=== PATIENT | female | born 1985 ===

== ENCOUNTER 2017-12-02 08:58 | Inpatient (IN) | payer MEDICAID ==
[2017-12-02 10:20] VITALS: BMI 34.4
[2017-12-02] MEDS ORDERED: Lactated Ringer's 1,000 ML IV ONE (13:04)
[2017-12-02] MEDS ORDERED: Oxytocin 30 UNIT 30 UNITS/500 ML BAG IV ONE (13:06)
[2017-12-02] MEDS ORDERED: OXYTOCIN/0.9 % NS 20 UNIT/1,000 ML BAG IV ONE (13:06)
[2017-12-02] MEDS ORDERED: Lactated Ringer's 1,000 ML IV SCH ×2 (13:15→18:34)
[2017-12-02] MEDS ORDERED: SODIUM CHLORIDE IVPB ONE (13:22)
[2017-12-02] MEDS ORDERED: PENICILLIN SODIUM IVPB ONE (13:22)
--- NOTE | 2017-12-02 13:25 | OBADHP ---
Datetime: 12/02/2017 13:02 Admit Comment, IP Provider: 32 y/o female at [id number] c/o painful contractions that began at 1AM. She states that she also has vaginal spotting. She denies VFL. She endorses movements. [facility]: [facility] Pmhx: denies SurgHx: denies FamHx: denies SocialHx: denies tobacco, etoh, recreational drug use Allergies: NKDA OBhx: NSVDx2, Abortions x2 HomeRx: vitamins Gen: not in acute distress Heart: RRR, S1S2 present Lungs: clear to auscultation bilaterally Abd: soft, nontender, normal bowel sounds SVE: (Chaperoned by Dr. Guerrero) 2 cm dilated, 80% effacement, posterior on admission Extremities: no pedal edema or calf tenderness Assessment and Plan: 32 y/o female [id number] intrauterine GBS positive Patient is not in active labor; occasional contractions, 2 cm dilated at 10:00AM Patient advised to start PO fluids Will reevaluate in 2 hours to assess cervical change 1:00PM patient is 6 cm dilated. Will admit to L_D. CBC/ type and screen ordered Can have epidural, anesthesiology consulted Case discussed w/ attending physician, Dr. Guerrero Applied Anthropologist ID#:[id number] ARIAS [facility] Hospitalist Addendum: 32 yo at 38+6 wks w/ painful cyxns since 1 am, in labor. VE rocha ged from 1cm at 10 am to 6-7 cm dilated at 1pm. FHT reactive. GBS positive. Will start Penicillin for GBS prophylaxis. Pt admitted to L_D. (ES) Pelvic Type - PN: Adequate Extremities - PN: Normal Abdomen - PN: Normal Back - PN: Normal Breast - PN: Not Done Lungs - PN: Normal Heart - PN: Normal Thyroid - PN: Normal Neurologic - PN: Normal HEENT - PN: Normal General - PN: Normal FHR - Baseline A Provider: 150 Membranes, Provider: Bulging Gestation - Est Wks by US: 38.6 IP Hx Assessment: The History has been Reviewed and is Current Vital Signs Provider: Reviewed; Within Normal Limits IP Chief Complaint: Uterine contractions; Maternal discomfort NICHD Variability Prov Fetus A: Moderate 6-25bpm NICHD Accel Fetus A IP Provider: [id number] FHR Category Provider Fetus A: Category I NICHD Decel Fetus A IP Provider: None Dilatation, Provider: 6 Effacement, Provider: 80 Station, Provider: -2 Genitourinary Exam: Not Done DTRs - PN: Not Done EGA AdmitDate IP: 38.6 IP Adm Impression: Term, intrauterine ; Active labor IP Admit Plan: Admit to unit Datetime: 12/02/2017 09:50 Contraction Comments Provider: occasional
[2017-12-02] MEDS ORDERED: Penicillin G 5 Million Unit Vial IVPB ONE (13:51)
[2017-12-02 14:02] LABS: BASO % 0.3 % (0.0-2.0); EOS # 0.1 K/uL (0.0-0.7); EOS % 0.4 % (0.0-4.0); HEMOGLOBIN 11.8 g/dL (12.0-16.0); LYMPH # 2.6 K/uL (1.0-4.3); MEAN CELL VOLUME 88.4 fl (81.0-99.0); MEAN CORPUSCULAR HEMOGLOBIN 29.3 pg (27.0-31.0); MEAN CORPUSCULAR HGB CONC 33.1 g/dL (33.0-37.0); MEAN PLATELET VOLUME 9.3 fl (7.2-11.7); MONO # 0.6 K/uL (0.0-0.8); NEUT # 11.3 K/uL (1.8-7.0); NEUT % 77.3 % (50.0-75.0); RBC 4.03 Mil/uL (3.80-5.20); RED CELL DISTRIBUTION WIDTH 14.3 % (11.5-14.5); WHITE BLOOD COUNT 14.6 K/uL (4.8-10.8)
[2017-12-02] MEDS ORDERED: Oxycodone/Acetaminophen 5/325 mg Tab PO PRN ×2 (16:20→18:34)
[2017-12-02] MEDS ORDERED: Benzocaine/Menthol SPRAY TOP PRN ×2 (16:20→18:34)
--- NOTE | 2017-12-02 16:54 | OBDS ---
MATERNAL INFORMATION Provider Comments: Pt progressed to complete and pushed to deliver a viable female at 1608. Nuchal x1 was reduced as baby delivered. Apgars 9 and 9. Wt 3690 gms, 8#2.2 Cord doubly clamped and her friend cut the cord. Placenta delivered spontaneously intact w/ a 3vc at 1612. 0.5 % [place] ne was infiltrated into the vagina and perineum. Second degree tear repaired w/ 2-0 rapide and 3-0v. Pt and baby tolerated the procedure well. EBL 150mL LABOR SUMMARY EDC: 12/10/2017 00:00 No. Babies in Womb: 1 LABOR INFORMATION Onset of Labor: 12/02/2017 01:00 Group B Beta Strep: Positive MEMBRANES Membranes Rupture Method: Spontaneous Amniotic Fluid Color: Clear Amniotic Fluid Amount: Moderate Amniotic Fluid Odor: Normal VAGINAL DELIVERY Episiotomy: None Laceration Extension: Second Degree Laceration Type: Vaginal Laceration Repair: Yes Initial Vag Sponge Count: 5 laps with ring, 10 sponges Final Vag Sponge Count: 5 laps with ring, 10 sponges Initial Vag Sharps Count: 2 sutures, 1 needle Final Vag Sharps Count: 2 sutures, 1 needle Sponge Count Correct: Yes Sharps Count Correct: Yes Count Comment: count correct acknowleged by Dr. Guerrero BABY A INFORMATION Delivery Date/Time: 12/02/2017 16:08 Method of Delivery: Vaginal Born in Route : No : N/A Forceps: N/A Vacuum Extraction: N/A Shoulder Dystocia : No SHOULDER DYSTOCIA BABY A Infant Delivery Date/Time: 12/02/2017 16:08 PRESENTATION/POSITION BABY A Presentation: Cephalic INFORMATION BABY A Gestational Age at Delivery: 38.6 Gestational Status: Term Outcome : Liveborn Condition : Stable Infant Sex: Female
[2017-12-03 06:48] LABS: BASO % 0.1 % (0.0-2.0); EOS # 0.2 K/uL (0.0-0.7); EOS % 1.1 % (0.0-4.0); HEMOGLOBIN 10.1 g/dL (12.0-16.0); LYMPH # 2.6 K/uL (1.0-4.3); LYMPH % 17.1 % (20.0-40.0); MEAN CELL VOLUME 87.9 fl (81.0-99.0); MEAN CORPUSCULAR HEMOGLOBIN 29.8 pg (27.0-31.0); MEAN PLATELET VOLUME 8.9 fl (7.2-11.7); MONO # 0.7 K/uL (0.0-0.8); MONO % 4.2 % (0.0-10.0); NEUT % 77.5 % (50.0-75.0); RBC 3.4 Mil/uL (3.80-5.20); RED CELL DISTRIBUTION WIDTH 13.9 % (11.5-14.5); WHITE BLOOD COUNT 15.5 K/uL (4.8-10.8)
[2017-12-03] MEDS: Multivitamin With Minerals Tab PO SCH (08:20)
[2017-12-03] MEDS ORDERED: Multivitamin With Minerals Tab PO SCH (09:00)
--- NOTE | 2017-12-03 23:05 | OBPPN ---
Datetime: 12/03/2017 08:38 PP Pain Prov: Within normal limits PP Nausea Prov: Denies PP Flatus Prov: Yes PP BM Prov: No PP Breasts Prov: Not Done PP Heart Prov: Normal PP Lungs Prov: Normal PP Abdomen/Uterus Prov: Normal PP Lochia Prov: Normal PP Vulva/Perineum Prov: Not Done PP CVA Tenderness Prov: Normal PP Extremities Prov: Normal PP C/S Incision Prov: Not Applicable PP Progress Prov: Normal PP Impression Prov: Normal progression PP Plan Prov: Continue present management PP Progress Note Prov: 32 yo now , 38.6 wks, s/p 12/02/17 being evaluated on PPD1. Pt hav e no acute overnight complains. Abdominal pain appropriately controlled with ibuprofen. Pt reports pa ssing flatus, but BM yetl. Lochia less than menses. She is formula feeding. PT denies fever, chills, diarrhea, nausea/vomiting, chest pain, dyspnea, and dizziness. O: VS: Stable, WNL GEN: NAD Cardio: RRR, S1S2, no murmurs Lungs: CTA B/L, no wheezing Abdomen: BS+, appropriated tendenrness, fundus at umbilicus, firm. Ext: No edema, calves non-tender Neuro/psych: AAOx3, no grossly focal deficits, preserved affect and mood. A/P: 32 yo now , 38.6 wks, s/p 12/02/17 being evaluated on PPD1 with normal progression. Pt remains afebrile, tolerating pain with medication. Tolerating diet. Continue with current management Encourage Encourage ambulating Continue Ibuprofen 600mg q6 for mild-moderate pain. [facility]ip[facility] I saw and examined this patinet. Agree with note MAMIEO Vital Signs Provider PP: Reviewed; Within Normal Limits
[2017-12-04] MEDS: Multivitamin With Minerals Tab PO SCH (08:23)
[2017-12-04] MEDS ORDERED: Influenza Vaccine (5 YR UP)/PF 60 MCG/0.5 ML SYR IM ONE (09:52)
--- NOTE | 2017-12-04 11:37 | OBDCSUM ---
Datetime: 12/04/2017 06:19 Discharged to, Provider: Home Follow up at, Provider: Helder Cleary Instr Activity: Normal activity; May be up to bathroom; May be up for meals; May Shower Disch Instr Diet: Regular Discharge Instructions, Provider: Routine instructions given Discharge Diagnosis, Provider: Term Delivered Discharge Time: 12/04/2017 11:00 Follow up in weeks, Provider: 4-6 weeks Disch Referrals: None Contraception discussed, Prov: Yes Disch Activity Restrictions: Nothing in vagina - [place], tampons, douche Discharge Comment, Provider: EGA: 38.6 wks Diagnosis: 32 y/o , s/p on 12/02/17 @ 16:08. Pt delivered baby girl, Wt: 3690gm, 9/9 Summary: Patient is PPD2 with normal progression. No complications during post- period. [place] like than menses. Pt was able to pass gas and have BM yesterday. tolerating regular diet, Fundus f irm below umbilicus, able to ambulate w/o any difficulties, voiding well, denies fever, chills, [place], S OB, N/V, calf pain. CBC post-: 10.1/29.9 Discharge Instructions: Continue with PNV 1 tab PO daily Ibuprofen 600mg 1 tab PO Q6h prn for mild-mod pain Patient undecided on contraception. Instructions given to patient: If excessive bleeding, return of pain or increasing pain and/or fev er without relief from medication, go to ED PT was urged if feeling sad, mood swing, depression, neglect of baby, suicidal thoughts, homicidal thought should go to ED or call 911 for help Pt should go to her Primary care doctor if she has difficulty with F/U post- visit in 4 to 6 weeks with Helder Awan Case discussed with attending Dharmesh Mcgrath, PGY1 Patient seen with the resident I agree with the note Contraception after Delivery: Undecided
[2017-12-04 15:49] VITALS: BP 96/66; PULSE 84; RESP 20; TEMP 98.3; O2SAT 97
== END 2017-12-04 11:30 | disposition home or self-care (01) | DRG 775 ==
LOC: H.EROB2 08:58 → H.L&D 09:30 → H.EROB2 13:03 → H.L&D 13:04 → H.OB/GYN 18:10
PROVIDERS: ADMIT Obstetrics & Gynecology; ATTEND Obstetrics & Gynecology
PROC: 10E0XZZ Delivery of Products of Conception, External Approach (ICD-10-PCS; principal; 2017-12-02)
PROC: 0KQM0ZZ Repair Perineum Muscle, Open Approach (ICD-10-PCS; 2017-12-02)
PROC: 4A1HXCZ Monitoring of Products of Conception, Cardiac Rate, External Approach (ICD-10-PCS; 2017-12-02)
DX: O69.81X0 Labor and delivery complicated by cord around neck, without compression, not applicable or unspecified (principal); O70.1 Second degree perineal laceration during delivery; Z37.0 Single live birth; O99.824 Streptococcus B carrier state complicating childbirth; Z3A.38 38 weeks gestation of pregnancy